=== PATIENT | female | born 1990 | race Two or more races ===

== ENCOUNTER 2020-12-24 07:30 | Inpatient (IN) | payer MEDICAID ==
[~2020-12-24] VITALS: Ht 167.6 cm; Wt 145.4 kg
[2020-12-24 08:20] VITALS: BP 132/60
== END 2020-12-24 16:30 | disposition home or self-care (01) | DRG 547 ==
LOC: LDOP 07:30 → OBSVTOIN 07:43 → INTOOBSV 07:43 → EDBD 07:43 → LDIP 07:43
PROVIDERS: ADMIT Obstetrics & Gynecology Maternal & Fetal Medicine; ATTEND Obstetrics & Gynecology Maternal & Fetal Medicine
PROC: 0UVC0ZZ Restriction of Cervix, Open Approach (ICD-10-PCS; principal; 2020-12-24)
DX: O26.872 Cervical shortening, second trimester (principal); O30.042 Twin pregnancy, dichorionic/diamniotic, second trimester; O34.211 Maternal care for low transverse scar from previous cesarean delivery; Z20.822 Contact with and (suspected) exposure to COVID-19; Z3A.22 22 weeks gestation of pregnancy